=== PATIENT | female | born 1980 | race Caucasian/White ===

== ENCOUNTER 2025-05-01 07:51 | Day surgery (SDC) | payer BC ==
[~2025-05-01 07:51] MED LIST: Sodium Chloride 0.9% 10 ML Syringe FLUSH PRN; Sodium Chloride 0.9% 10 ML Syringe FLUSH SCH; propofoL 1,000 MG/100 ML 100 ML ONE
[2025-05-01] MEDS ORDERED: Midazolam 1 MG/ML 2 ML SDV ONE (08:01)
[2025-05-01] MEDS ORDERED: fentaNYL 250 MCG/5 ML SDV ONE (08:01)
[2025-05-01] MEDS ORDERED: Propofol 200 MG/20 ML SDV ONE (08:01)
[2025-05-01] MEDS ORDERED: Dexamethasone 4 MG/ML 5 ML MDV ONE (08:05)
[2025-05-01] MEDS ORDERED: Ondansetron 4 MG/2 ML SDV ONE (08:05)
[2025-05-01] MEDS ORDERED: dexmedeTOMIDine HCl 200 MCG/2 ML SDV ONE (08:11)
[2025-05-01] MEDS: Lactated Ringers 1,000 ML IV SCH (08:20)
[2025-05-01 08:44] LABS: BASOPHILS ABSOLUTE AUTO 0.1 K/mm3 (0.0-0.2); BASOPHILS PERCENT AUTO 0.4 % (0.0-1.0); EOSINOPHILS ABSOLUTE AUTO 0.3 K/mm3 (0.0-0.4); EOSINOPHILS PERCENT AUTO 1.4 % (0.0-6.0); IMMATURE GRAN ABSOLUTE AUTO 0.03 K/mm3 (0.00-0.05); IMMATURE GRAN PERCENT AUTO 0.1 % (0.0-0.4); LYMPHOCYTES ABSOLUTE AUTO 20.6 K/mm3 (1.0-4.8); LYMPHOCYTES PERCENT AUTO 84.0 % (24.0-44.0); MEAN PLATELET VOLUME 8.9 fl (9.4-12.3); MONOCYTES ABSOLUTE AUTO 1.0 K/mm3 (0.0-0.8); MONOCYTES PERCENT AUTO 4.1 % (0.0-8.0); NEUTROPHILS ABSOLUTE AUTO 2.5 K/mm3 (1.8-7.7); NEUTROPHILS PERCENT AUTO 10.0 % (41.0-71.0); NRBC ABSOLUTE 0.00 (0.00-0.02); NRBC PERCENT 0.0 % (0.0-0.2); PLATELET COUNT,PLT 263 K/mm3 (150-400); RED BLOOD CELL COUNT 4.07 M/mm3 (4.10-5.30); WHITE BLOOD CELL COUNT,WBC 24.47 K/mm3 (3.9-11.3)
[2025-05-01] MEDS ORDERED: ePHEDrine 50 MG/ML SDV ONE (09:06)
[2025-05-01 09:13] LABS: A/G RATIO 1.4 (1-2); ALANINE AMINOTRANSFERASE,ALT 24.0 U/L (14-59); ASPARTATE AMNIOTRANSFERASE,AST 20.0 U/L (15-37); BILIRUBIN TOTAL 0.7 mg/dL (0.2-1.0); BLOOD UREA NITROGEN,BUN 16.0 mg/dL (7-18); CARBON DIOXIDE,CO2 29.0 mEq/L (21-32); CHLORIDE,CL 105.0 mEq/L (98-107); CREATININE 0.7 mg/dL (0.55-1.02); EST CRCL DRUG DOSING (CG) 78.73 mL/min; ESTIMATED GFR 108.0 mL/min (>60); GLUCOSE RANDOM 81.0 mg/dL (70-99); POTASSIUM,K 4.3 mEq/L (3.5-5.1); PROTEIN TOTAL,TP 6.2 g/dl (6.4-8.2); SODIUM,NA 140.0 mEq/L (136-145)
[2025-05-01] MEDS: Lidocaine 1% with EPINEPHrine 1:100,000 20 ML MDV INJECT ONE (09:40)
[2025-05-01] MEDS ORDERED: Ketorolac 30 MG/ML SDV ONE (10:09)
[2025-05-01] MEDS ORDERED: droPERidol 2.5 MG/ML SDV IV PRN (10:32)
[2025-05-01] MEDS ORDERED: fentaNYL 100 MCG/2 ML SDV IVPUSH PRN (10:32)
[2025-05-01] MEDS ORDERED: Acetaminophen/oxyCODONE 325-5 MG Tab PO SCH (11:00)
== END 2025-05-01 14:40 | disposition home or self-care (01) ==
LOC: JD.SDS 07:51
PROVIDERS: ATTEND Obstetrics & Gynecology
DX: N80.03 Adenomyosis of the uterus (principal); D25.1 Intramural leiomyoma of uterus; N83.8 Other noninflammatory disorders of ovary, fallopian tube and broad ligament; I10 Essential (primary) hypertension; D50.0 Iron deficiency anemia secondary to blood loss (chronic); Z87.891 Personal history of nicotine dependence; Z79.899 Other long term (current) drug therapy
CPT/HCPCS: 36415; 58552; 80053; 81025; 85025; 86850; 86900; 86901; A9270; J0665; J0690; J1100; J1885; J2003; J2004; J2250; J2405; J2704; J3010; J7120; J1171; J3490